=== PATIENT | female | born 1970 | race Caucasian/White ===

== ENCOUNTER 2016-10-29 08:55 | Emergency (ER) | payer BC ==
[2016-10-29 09:01] VITALS: BP 126/74; PULSE 76; RESP 16; TEMP 97.9; O2SAT 99
[2016-10-29] MEDS ORDERED: TDAP ADULT 0.5 ML VIAL (BOOSTRIX) IM ONE (09:14)
--- NOTE | 2016-10-29 09:14 | EDPHY ---
H & P Time Seen by Provider: 10/29/16 09:06 HPI/ROS: CHIEF COMPLAINT: Left middle digit laceration HISTORY OF PRESENT ILLNESS: 46-year-old female right-hand dominant with out-of- date tetanus sustained accidental laceration to left middle digit dorsal aspect at the PIP joint when a plate broke this morning. No paresthesia. No foreign body sensation. No sensory or motor deficit. PHYSICAL EXAM (Prior to examination, patient consented to physical exam, hands were washed and my usual and customary physical exam procedures followed) 1) GENERAL: Well-developed, well-nourished, alert and oriented. Appears to be in no acute distress. 2) HEAD: Normocephalic 3) HEENT: sclera anicteric 4) LUNGS: Breathing comfortably. 5) SKIN: On the left 3rd digit dorsal aspect PIP joint she has a 1.5 cm flap laceration. I am able to visualize the flexor tendon and it appears intact 6) MUSCULOSKELETAL: flexion, extension intact at the MCP, PIP, D IP with no deficits. 7) NEUROLOGIC: Full sensation and two-point discrimination intact distally Smoking Status: Never smoked Constitutional: Initial Vital Signs Temperature (C) 36.6 C 10/29/16 08:59 Heart Rate 76 10/29/16 08:59 Respiratory Rate 16 10/29/16 08:59 Blood Pressure 126/74 H 10/29/16 08:59 O2 Sat (%) 99 10/29/16 08:59 O2 Delivery Mode Room Air Allergies/Adverse Reactions: Penicillins Allergy (Verified 10/29/16 08:58) Home Medications: Medication Instructions Recorded NK [No Known Home Meds] 10/29/16 MDM/Departure - MDM Diagnostics: Left Third Finger, Three Views History: Pain post trauma. Cut finger on glass. Findings: There is a lateral soft tissue laceration. There is dorsal soft tissue swelling at the level of the PIP joint. Overlying bandaging material obscures bony detail on the AP view. No fracture, radiopaque foreign material, intra-articular gas or malalignment is identified. Impression: No bone or joint abnormality identified. Dictated By: Shadi Hutchins MD Images reviewed by myself Procedures: Procedure: Laceration repair. I explained the indications, risks and benefits for both laceration repair and anesthetic administration. Verbal consent was obtained from the patient . The laceration on the left middle digit was anesthetized using 0.5% bupivicaine without epinephrine . After anesthetic administered the patient was observed for a period of time and had no apparent adverse effects. The wound was cleaned , prepped, draped in normal sterile fashion and explored to its base. No foreign body seen, no foreign bodies palpated. There were no deep structures involved. No tendon injury was identified. The wound was repaired with 5 simple interrupted 5-O Ethilon suture. The wound repair was simple. The procedure was performed by myself. Patient has been informed that scarring will occur, although efforts have been made to minimize this. Procedure: Splint and aluminum finger splint was applied by ER technician assistant. After application of the splint I returned and re-examined the patient. The splint was adequately immobilizing the joint and distal to the splint the patient's circulation and sensation were intact. Medications Given: Discontinued Medications Diphtheria/Tetanus/Acell Pertussis (Boostrix) 0.5 ml IM .ONCE ONE Stop: 10/29/16 09:15 Last Admin: 10/29/16 09:34 Dose: 0.5 ml - Depart Disposition: Home, Routine, Self-Care Clinical Impression: Left middle digit laceration Condition: Good Instructions: Laceration (ED), Care For Your Stitches (ED) Additional Instructions: Return to the ER if you develop redness, swelling, discharge, warmth to the wound, red streaks going up your arm , or any other symptoms that concern you. Referrals: Return, to the ER in 10 days for suture removal [Other] - As per Instructions
--- NOTE | 2016-10-29 09:32 | DX ---
Left Third Finger, Three Views History: Pain post trauma. Cut finger on glass. Findings: There is a lateral soft tissue laceration. There is dorsal soft tissue swelling at the leve l of the PIP joint. Overlying bandaging material obscures bony detail on the AP view. No fracture, r adiopaque foreign material, intra-articular gas or malalignment is identified. Impression: No bone or joint abnormality identified.
== END 2016-10-29 09:57 | disposition home or self-care (01) ==
PROC: 0HQGXZZ Repair Left Hand Skin, External Approach (ICD-10-PCS; principal; 2016-10-29)
DX: S61.213A Laceration without foreign body of left middle finger without damage to nail, initial encounter (principal); Z23 Encounter for immunization; W45.8XXA Other foreign body or object entering through skin, initial encounter

== ENCOUNTER → 2016-11-14 | Outpatient (CLI) | payer BC ==
--- NOTE | 2016-11-14 14:33 | MA ---
Screening Digital Mammogram With Tomosynthesis Clinical Indications: Routine screening. Technique: Standard digital cephalocaudal and tomosynthesis mediolateral oblique projections are obt ained. The digital images were processed by the [place] computer aided detection system. Comparison: October 2015, 2014, 2013, 2012 and September 2011 Breast density: B; There are scattered fibroglandular densities. Findings: CAD was reviewed. No suspicious findings are identified. Impression: Negative mammogram. BI-RADS 1. Recommendation: Routine screening is recommended in one year. Considering the patient's dense breas t parenchyma, she might consider using whole breast screening ultrasound as a complement to annual sc reening mammography. [facility] will send a result letter to the patient. Negative mammography should not preclude additional workup of a clinically suspicious finding. The patient's information is entered into a reminder system with a target due date for her next mammo gram. For
== END ==
LOC: FIMAGING 13:24
DX: Z12.31 Encounter for screening mammogram for malignant neoplasm of breast (principal)
CPT/HCPCS: G0202

== ENCOUNTER → 2017-02-26 | Outpatient (CLI) | payer BC | LOC: FIMAGING 14:53 | PROVIDERS: ATTEND Obstetrics & Gynecology | DX: N60.81 Other benign mammary dysplasias of right breast (principal) ==

== ENCOUNTER → 2018-01-30 | Outpatient (CLI) | payer BC | LOC: FIMAGING 11:16 | PROVIDERS: ATTEND Obstetrics & Gynecology | DX: Z12.31 Encounter for screening mammogram for malignant neoplasm of breast (principal) ==

== ENCOUNTER → 2018-02-25 | Outpatient (CLI) | payer BC | LOC: FIMAGING 13:37 | PROVIDERS: ATTEND Obstetrics & Gynecology | DX: N60.02 Solitary cyst of left breast (principal) ==

== ENCOUNTER → 2019-03-12 | Outpatient (CLI) | payer BC | LOC: FIMAGING 07:38 ==